=== PATIENT | female | born 1975 | race Two or more races ===

== ENCOUNTER 2019-03-30 09:35 | Emergency (ER) | payer MEDICAID ==
[~2019-03-30] VITALS: Ht 152.4 cm; Wt 66.2 kg
[2019-03-30] MEDS ORDERED: NKM (09:50)
--- NOTE | 2019-03-30 10:00 | NUR ---
ED Nurse Note: Patient presents to ER due to open wound on the right sided abdomen. Patient states it started as 'pimple' x 1 week and tried to draiange at home. Seen by PCP on 03/28/2019 and been taking Bactrim DS. Approximately 4cm x 2cm round hardening area with tenderness, redness and warmth and open wound (approximately 0.5cm x 0.5cm) in the center with yellow drainage noted. Reports no fever, chills or N/V. Dr. Jaimes at bedside performing u/s exam. No facial grimacing or guarding noted.
--- NOTE | 2019-03-30 10:11 | NUR ---
ED Nurse Note: Informed consent for incision and drainage of the abdominal wall abscess obtained by Dr. Jaimes and patient verbalized understanding of it and has no further questions at this time.
[2019-03-30] MEDS ORDERED: Lidocaine 1% 10mg/ml/Epi 0.005mg/ml 30ml vial INJ ONE ×2 (10:21→10:30)
--- NOTE | 2019-03-30 10:25 | NUR ---
ED Nurse Note: Dr. Jaimes at bedside and performed I&D on the abdominal wall.
[2019-03-30] MEDS ORDERED: NORCO 5-325 TA1 EACH ORAL (10:42)
[2019-03-30] MEDS ORDERED: IBUPROFEN600 MG ORAL (10:42)
--- NOTE | 2019-03-30 10:44 | NUR ---
ED Nurse Note: I&D done and it was irrigated with NS and covered with gauze 4x4. no s/s of infection noted. BS checked by ERMD verbal order. the result 92mg/dl reported to ERMD. no s/s of hypo or hyperglycemia noted.
--- NOTE | 2019-03-30 10:46 | Emergency Room Report ---
History of Present Illness General Chief Complaint: Skin Rash/Abscess Source: Patient Present Illness HPI Patient is a 43-year-old female presented after increased right-sided abdominal discomfort. Patient was noted to have sent been sent in for incision and drainage. Patient had been prescribed Bactrim as well as Keflex. Patient reports having moderate pain. She denies any fever. She denies being diabetic. She had no other locations of swelling. Allergies: Coded Allergies: No Known Allergies (Unverified , 03/30/19) Patient History Past Medical History: see triage record Last Menstrual Period: february Now: No Reviewed Nursing Documentation: PMH: Agreed; PSxH: Agreed Nursing Documentation-PMH Past Medical History: No Stated History Review of Systems All Other Systems: negative except mentioned in HPI Physical Exam Vital Signs Date Time Temp Pulse Resp B/P (MAP) Pulse Ox O2 Delivery O2 Flow Rate FiO2 03/30/19 09:44 98.4 70 16 132/74 (93) 97 Room Air General Appearance: well appearing, no apparent distress, alert, GCS 15 Head: normocephalic, atraumatic ENT: hearing grossly normal, normal voice Neck: full range of motion, supple Respiratory: no respiratory distress, speaking full sentences Musculoskeletal: no calf tenderness Neurologic: normal inspection, alert, oriented x3, responsive, normal gait Psychiatric: mood/affect normal Skin: other - erythema and induration to right lower abdomen, no peritoneal signs Procedures Incision and Drainage Incision and Drainage : Consent: Emergent Site: abdomen I & D Procedure: betadine prep, sterile drapes applied Wound Location: abdomen Wound's Depth, Shape: superficial Wound Length (cm): 1 Wound Explored: clean Anesthesia: Lidocaine w/ Epi Volume Anesthetic (ccs): 5 Sling Applied?: Yes Patient Tolerated: Well Complications: None Medical Decision Making Diagnostic Impression: Primary Impression: Abscess ER Course Patient present for skin rash. Differential diagnosis include was not limited to abscess, brown recluse bite, ulcer, hidradenitis among others. Patient has a benign exam and does not appear to require any further imaging or laboratory testing at this time. Patient was noted to have what appears to be an abdominal wall abscess. Patient was consented for incision and drainage. Incision and drainage was performed under sterile technique with minimal purulent drainage if any. Patient tolerated this well. She had no complications. Patient was already prescribed Keflex and Bactrim and will be continued on these medications. She is given medications for post procedure discomfort. Patient was to follow-up with Dr. Luis E Gamez for recheck in 2 days. Last Vital Signs Date Time Temp Pulse Resp B/P (MAP) Pulse Ox O2 Delivery O2 Flow Rate FiO2 03/30/19 10:00 72 16 Room Air 03/30/19 09:44 98.4 132/74 (93) 97 Disposition: HOME, SELF-CARE Condition: Stable Scripts Hydrocodone Bit/Acetaminophen 5-325* (NORCO 5-325*) 1 Each Tablet 1 TAB ORAL Q6H PRN for For Pain, #10 TAB 0 Refills Prov: Omar Jaimes MD 03/30/19 Ibuprofen* (MOTRIN*) 600 Mg Tablet 600 MG ORAL Q8H PRN for For Pain, #30 TAB 0 Refills Prov: Omar Jaimes MD 03/30/19 Patient Instructions: Abscess Additional Instructions: Follow up with your doctor in 2 days for recheck. Return if worse. Omar Jaimes MD Mar 30, 2019 10:46
[2019-03-30 10:56] VITALS: BP 128/76
--- NOTE | 2019-03-30 10:58 | NUR ---
ER DISCHARGE NOTE: Patient is cleared to be discharged per ERMD after I&D, pt is aox4, accompanied by , on room air, with stable vital signs. pt was given dc and prescription instructions, pt was able to verbalize understanding, pt id band removed. pt is able to ambulate with steady gait. pt took all belongings.
== END 2019-03-30 10:59 | disposition home or self-care (01) ==
LOC: EMR 10:35
DX: L02.211 Cutaneous abscess of abdominal wall (principal)
CPT/HCPCS: 10060; 82962; 99283; Z7502

== ENCOUNTER → 2019-06-19 | Emergency (ER) | payer MEDICAID ==
[~2019-06-19] VITALS: Ht 154.9 cm; Wt 72.6 kg
[~2019-06-19] MED LIST: BACTRIM DS TAB1 EAC1 ORAL; CEPHALEXIN500 M1 ORAL; CEPHALEXIN500 MG ORAL; Cephalexin 500mg cap ORAL ONE; IBU800 MG PO; IBUPROFEN600 MG ORAL; NKM; NORCO 5-325 TA1 EACH ORAL
--- NOTE | 2019-06-19 20:05 | NUR ---
pt not in waiting room
[2019-06-19 20:20] VITALS: BP 116/73
--- NOTE | 2019-06-19 20:20 | NUR ---
ED Nurse Note: Patient presents with complaints of left ankle pain x 2 days.
--- NOTE | 2019-06-19 20:41 | Emergency Room Report ---
History of Present Illness General Chief Complaint: Skin Rash/Abscess Source: Patient Present Illness HPI 43-year-old female presents with left calf abscess, lateral side, patient just started taking Bactrim, no fevers no chills, she endorses some redness no discharge or pus, patient endorses a deep pain worsened with movement alleviated with rest severity is mild patient presents for evaluation Allergies: Uncoded Allergies: CATS (Allergy, Unknown, 06/19/19) Patient History Past Medical History: see triage record Last Menstrual Period: 06/01/2019 Reviewed Nursing Documentation: PMH: Agreed; PSxH: Agreed Review of Systems All Other Systems: negative except mentioned in HPI Physical Exam Vital Signs Date Time Temp Pulse Resp B/P (MAP) Pulse Ox O2 Delivery O2 Flow Rate FiO2 06/19/19 20:20 98.8 74 16 116/73 (87) 96 Room Air General Appearance: well appearing, no apparent distress Head: normocephalic, atraumatic ENT: hearing grossly normal, normal voice Neck: full range of motion, supple Respiratory: no respiratory distress, speaking full sentences Musculoskeletal: other - Left lateral calf, 7 x 7 cm area of erythema, with a punctate lesion in the middle, no active drainage, [id number] ultrasound shows no pus pocket Neurologic: alert, normal gait Psychiatric: mood/affect normal Skin: no rash Medical Decision Making Diagnostic Impression: Primary Impression: Cellulitis of left leg ER Course Patient with cellulitis of the left leg, ultrasound shows no pus pocket, no indications for acute incision and drainage Counseled patient to continue taking her antibiotics recheck wound in 3 days, area was marked with a surgical marker Patient is currently taking Bactrim DS will add Keflex Disposition home with return precautions Last Vital Signs Date Time Temp Pulse Resp B/P (MAP) Pulse Ox O2 Delivery O2 Flow Rate FiO2 06/19/19 20:20 98.8 82 16 116/73 96 Room Air Disposition: HOME, SELF-CARE Condition: Stable Scripts Cephalexin* (KEFLEX*) 500 Mg Tablet 500 MG ORAL EVERY 6 HOURS, #28 CAP Prov: Joaquín Platt MD 06/19/19 Referrals: [facility] [place] Patient Instructions: Cellulitis, [id number] Additional Instructions: The patient was provided with discharge instructions, notified to follow-up with a primary care doctor and or specialist in the next 24-48 hours, and to return to the ED if they have worsening of their symptoms. Please note that this report is being documented using [employer] technology. This can lead to erroneous entry secondary to incorrect interpretation by the dictating instrument. RETURN TO ED IN 3 DAYS FOR WOUND CHECK OR PCP Joaquín Platt MD Jun 19, 2019 20:41
[2019-06-19 21:01] VITALS: BP 116/73
--- NOTE | 2019-06-19 21:02 | NUR ---
ED Nurse Note: Patient cleared for discharge by ER provider. Patient verbalized understanding of discharge instructions ID band removed. Patient departed with all belongings.
== END | disposition home or self-care (01) ==
LOC: EMR 20:25
DX: L03.116 Cellulitis of left lower limb (principal); Z91.048 Other nonmedicinal substance allergy status
CPT/HCPCS: 99282

== ENCOUNTER 2019-06-21 17:58 | Emergency (ER) | payer MEDICAID ==
[~2019-06-21] VITALS: Ht 152.4 cm; Wt 65.8 kg
[~2019-06-21 17:58] MED LIST changes: -BACTRIM DS TAB1 EAC1 ORAL; -CEPHALEXIN500 MG ORAL; -Cephalexin 500mg cap ORAL ONE; -IBU800 MG PO
[2019-06-21 18:07] VITALS: BP 118/79
--- NOTE | 2019-06-21 18:09 | NUR ---
ED Nurse Note: Patient walked in to ER from home with due to Lt lateral leg abscess. pain 8/10 reported. per pt, she was here at [facility] [place] Saturday and it is getting bigger since then. pt still taking ATB but does not recall the name of the ATB. pt aao x4 and ambulatory. skin clean and intact beside the abscess. calm and cooperative. no acute distress noted at this time.
[2019-06-21] MEDS ORDERED: Tetanus/Diptheria/Pertussis IM ONE (18:15)
[2019-06-21] MEDS ORDERED: Lidocaine 1% 10mg/ml/Epi 0.005mg/ml 10ml vial INJ ONE (18:15)
--- NOTE | 2019-06-21 18:53 | NUR ---
ED Nurse Note: I&D at bedside.
--- NOTE | 2019-06-21 19:00 | NUR ---
HAND-OFF: Report given to IGNACIO Bass. ERPA at bedside performing I&D. no orders to carry at this moment.
--- NOTE | 2019-06-21 19:21 | Emergency Room Report ---
History of Present Illness General Chief Complaint: Skin Rash/Abscess Source: Medical Record Present Illness HPI 43-year-old female with no significant past medical history here complaining of some abscess on left scalp. Patient was seen here at [facility] 3 days ago and was prescribed Bactrim DS and will as hydrocodone for symptom relief. Patient did not want drainage at that time. However today reports that she has marked edema has increased in size and is more painful rating a 10 out of 10 without radiation. Denies fever and chills, chest pain, shortness of breath, palpitation, and other associated symptoms. Erythema around the abscess is noted. Patient agrees to incision and drainage today. Not up-to-date with tetanus shot and what was given today. Allergies: Uncoded Allergies: CATS (Allergy, Unknown, 06/19/19) Patient History Past Medical History: see triage record Past Surgical History: unable to obtain Pertinent Family History: none Last Menstrual Period: 06/01/19 Now: No Immunizations: other - tdap today Reviewed Nursing Documentation: PMH: Agreed; PSxH: Agreed Nursing Documentation-PMH Past Medical History: No History, Except For Review of Systems All Other Systems: negative except mentioned in HPI Physical Exam Vital Signs Date Time Temp Pulse Resp B/P (MAP) Pulse Ox O2 Delivery O2 Flow Rate FiO2 06/21/19 18:02 97.3 79 18 118/79 (92) 97 Room Air Sp02 EP Interpretation: reviewed, normal General Appearance: no apparent distress, alert, GCS 15, non-toxic Head: normocephalic, atraumatic Eyes: bilateral eye normal inspection, bilateral eye PERRL ENT: hearing grossly normal, normal pharynx, no angioedema, normal voice Neck: full range of motion, supple/symm/no masses Respiratory: chest non-tender, lungs clear, normal breath sounds, no rhonchi, no wheezing, speaking full sentences Cardiovascular #1: regular rate, rhythm, no edema, no murmur Cardiovascular #2: 2+ dorsalis pedis (R), 2+ dorsalis pedis (L) Gastrointestinal: non tender, soft, no mass, no organomegaly, no guarding Genitourinary: no CVA tenderness Musculoskeletal: back normal, digits/nails normal, gait/station normal, normal range of motion, non-tender, no calf tenderness Neurologic: alert, oriented x3, responsive, motor strength/tone normal, sensory intact, speech normal Psychiatric: normal inspection, judgement/insight normal, memory normal Skin: other - abscess left calf Lymphatic: no adenopathy Procedures Incision and Drainage Incision and Drainage : Consent: Verbal Site: left calf Blade Size: 11 I & D Procedure: betadine prep Wound Location: lower extremity - calf Wound's Depth, Shape: superficial Wound Length (cm): 2 Wound Explored: clean Anesthesia: Lidocaine w/ Epi Volume Anesthetic (ccs): 20 Splint Applied?: No Sling Applied?: No Patient Tolerated: Well Complications: None Medical Decision Making PA Attestation Diagnosis and treatment plans were reviewed and discussed with my supervising physician Dr. Platt Diagnostic Impression: Primary Impression: Abscess of calf ER Course 43-year-old female with no significant past medical history here complaining of some abscess on left scalp. Patient was seen here at [place] [facility] 3 days ago and was prescribed Bactrim DS and will as hydrocodone for symptom relief. Patient did not want drainage at that time. However today reports that she has marked edema has increased in size and is more painful rating a 10 out of 10 without radiation. Denies fever and chills, chest pain, shortness of breath, palpitation, and other associated symptoms. Erythema around the abscess is noted. Patient agrees to incision and drainage today. Not up-to-date with tetanus shot and what was given today. Ddx considered but are not limited to : Cellulitis, DVT, superficial infection, abscess Vital signs: are WNL, pt. is afebrile H&PE are most consistent with: Abscess of calf ORDERS: extended Amount of Keflex and Bactrim DS. ED INTERVENTIONS: I and D, Tdap DISCHARGE: At this time pt. is stable for d/c to home. Will provide printed patient care instructions, and any necessary prescriptions. Care plan and follow up instructions have been discussed with the patient prior to discharge. Patient to follow-up in the emergency room 2 days for wound care. Small amount of pus was drained via incision and drainage. If fever and chills return to emergency room sooner. Follow-up with primary care provider. Continue taking antibiotics and in addition to the antibiotics that was already prescribed to her and wrote for 4 more days of Bactrim DS and Keflex. Last Vital Signs Date Time Temp Pulse Resp B/P (MAP) Pulse Ox O2 Delivery O2 Flow Rate FiO2 06/21/19 18:07 97.3 81 18 118/79 97 Room Air Disposition: HOME, SELF-CARE Condition: Stable Scripts Ibuprofen (Ibu) 800 Mg Tablet 800 MG PO TID, #21 TAB Prov: Kimberli Morgan 06/21/19 Trimethoprim/Sulfamethoxazole 160/800* (BACTRIM DS TABLET*) 1 Each Tablet 1 TAB ORAL TWICE A DAY for 4 Days, #8 TAB Prov: Kimberli Morgan 06/21/19 Cephalexin* (KEFLEX*) 500 Mg Capsule 500 MG ORAL EVERY 6 HOURS for 4 Days, #16 CAP Prov: Kimberli Morgan 06/21/19 Referrals: NON PHYSICIAN (PCP) Patient Instructions: Abscess Additional Instructions: Take medication as directed, follow-up with primary care provider, you need wound check in 24 to 48 hours. If worsening symptoms return to the emergency room. Kimberli Morgan Jun 21, 2019 19:21
[2019-06-21] MEDS ORDERED: IBU800 MG PO (19:22)
[2019-06-21] MEDS ORDERED: BACTRIM DS TAB1 EAC1 ORAL (19:22)
[2019-06-21] MEDS ORDERED: CEPHALEXIN500 MG ORAL (19:22)
[2019-06-21 19:31] VITALS: BP 110/72
--- NOTE | 2019-06-21 19:31 | NUR ---
ED Nurse Note: Pt cleared by health care Provider for discharge. DC instructions/prescription was given and explained to pt and verbalized understanding of teachings. All medical deviecs such as ID band removed. Pt is AAO x4, ambulatory and left with all personal belongings with significant other.
== END 2019-06-21 19:31 | disposition home or self-care (01) ==
LOC: EMR 18:15
DX: L02.416 Cutaneous abscess of left lower limb (principal); Z91.048 Other nonmedicinal substance allergy status; Z23 Encounter for immunization
CPT/HCPCS: 10060; 90471; 90715; Z7502; 99283